=== PATIENT | male | born 1995 | race Caucasian/White ===

== ENCOUNTER 2017-08-12 01:55 | Emergency (ER) | payer OTHER ==
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
[2017-08-12 05:02] VITALS: BP 134/93; PULSE 89; RESP 18; TEMP 98.4
[2017-08-12 06:38] VITALS: O2SAT 98
== END 2017-08-12 05:03 | disposition home or self-care (01) ==
LOC: C.ER 01:55
DX: F10.129 Alcohol abuse with intoxication, unspecified (principal); Y90.9 Presence of alcohol in blood, level not specified

== ENCOUNTER 2017-11-09 04:52 | Emergency (ER) | payer OTHER ==
[2017-11-09 05:14] VITALS: TEMP 97
--- NOTE | 2017-11-09 05:21 | C.PDOC ---
History Of Present Illness pt injured his right ribs about 1 week ago playing sports. Complaining of pain with movement. No f/c/n/v . Speaking in complete sentences. Hurts to move Time Seen by Provider: 11/09/17 05:20 Chief Complaint (Nursing): Rib Injury History Per: Patient History/Exam Limitations: no limitations Onset/Duration Of Symptoms: Days (7) Current Symptoms Are (Timing): Still Present Location: r ribs Recent travel outside of the [place]: No Additional History Per: Patient Past Medical History Reviewed: Historical Data, Nursing Documentation, Vital Signs Vital Signs: Last Vital Signs Temp 97 F L 11/09/17 05:12 Pulse 94 H 11/09/17 05:12 Resp 20 11/09/17 05:12 BP 132/79 11/09/17 05:12 Pulse Ox 96 11/09/17 05:21 - [facility] Procedures CLOSURE SKIN & SUBCUTANEOUS NEC (03/25/14) INJECT/INFUSE NEC (03/25/14) TETANUS TOXOID ADMINIST (03/25/14) Family History: States: Unknown Family Hx - Social History Hx Tobacco Use: Yes (1 pack per week) Hx Alcohol Use: Yes (four times a week to daily) Hx Substance Use: Yes (marijuana) - Immunization History Hx Tetanus Toxoid Vaccination: No Hx Influenza Vaccination: No Hx Pneumococcal Vaccination: No Review Of Systems Constitutional: Negative for: Fever, Chills Cardiovascular: Negative for: Chest Pain Respiratory: Negative for: Shortness of Breath Gastrointestinal: Negative for: Nausea, Vomiting, Abdominal Pain Skin: Negative for: Rash Neurological: Negative for: Weakness Psych: Negative for: Anxiety Physical Exam - Physical Exam Appears: Non-toxic Skin: Warm, Dry Oral Mucosa: Moist Neck: Supple Chest: Symmetrical, Tenderness (r mid axillary line) Cardiovascular: Rhythm Regular Neurological/Psych: Oriented x3 ED Course And Treatment O2 Sat by Pulse Oximetry: 96 Pulse Ox Interpretation: Normal - Radiology CXR: Interpreted by Me, Viewed By Me CXR Interpretation: No: Infiltrates, Fracture, Pnemothorax - Other Rad ribs X-Ray: Interpreted by Me, Viewed By Me Interpretation: no fx or dislocation Reevaluation Time: 06:01 Reassessment Condition: Improved Disposition Counseled Patient/Family Regarding: Studies Performed, Diagnosis, Need For Followup, Rx Given - Disposition Referrals: [facility] [Outside] Disposition Time: 05:21 Condition: FAIR Additional Instructions: Please return if symptoms recur Prescriptions: Ibuprofen [Motrin Tab] 800 mg PO TID #20 tab Instructions: Costochondritis (DC), Bruised Rib (DC) Forms: [facility] (Czech) - Clinical Impression Clinical Impression: Chest wall contusion
[2017-11-09 06:22] VITALS: BP 118/72; PULSE 75; RESP 18; O2SAT 98
--- NOTE | 2017-11-09 08:37 | RAD ---
PROCEDURE: Radiographs of the Chest and Right Ribs. HISTORY: trauma COMPARISON: None available. TECHNIQUE: Frontal radiograph of the chest and multiple oblique radiographs of the right ribs were obtained. FINDINGS: RIGHT RIBS: No fracture or focal lesion visualized. LUNGS: Clear. PLEURA: No pneumothorax or pleural fluid. CARDIOVASCULAR: Normal sized heart. No pulmonary vascular congestion. OTHER FINDINGS: None. IMPRESSION: Unremarkable radiographs of the chest and right ribs. No right rib fracture.
== END 2017-11-09 06:10 | disposition home or self-care (01) ==
LOC: C.ER 04:52
DX: S20.211A Contusion of right front wall of thorax, initial encounter (principal); X58.XXXA Exposure to other specified factors, initial encounter; F17.210 Nicotine dependence, cigarettes, uncomplicated